=== PATIENT | female | born 1965 | race African-American/Black ===

== ENCOUNTER 2017-09-25 19:53 | Emergency (ER) | payer MEDICARE, OTHER ==
[~2017-09-25] VITALS: Ht 170.2 cm; Wt 68.2 kg
[2017-09-25] MEDS ORDERED: ALBU8HFA IH (20:26)
[2017-09-25] MEDS ORDERED: DIAZ10 PO (20:26)
[2017-09-25] MEDS ORDERED: CYCL10 PO (20:26)
[2017-09-25] MEDS ORDERED: ESOM20CA31 PO (20:26)
[2017-09-25] MEDS ORDERED: OXYC10 PO (20:26)
[2017-09-25] MEDS ORDERED: PERTUSS(ACELL),DIPH,TET VAC/PF 0.5 ML VIAL IM ONE (20:45)
[2017-09-25] MEDS ORDERED: BACITRACIN 0.9 GM PACKET OINTMENT TP ONE (21:00)
[2017-09-25] MEDS ORDERED: IBUPROFEN 800 MG TABLET PO ONE (21:00)
[2017-09-25 22:20] VITALS: BP 140/88
== END 2017-09-25 22:20 | disposition home or self-care (01) ==
LOC: EMS 19:56
DX: S01.511A Laceration without foreign body of lip, initial encounter (principal); S00.93XA Contusion of unspecified part of head, initial encounter; K21.9 Gastro-esophageal reflux disease without esophagitis; G89.29 Other chronic pain; F17.210 Nicotine dependence, cigarettes, uncomplicated; Y04.0XXA Assault by unarmed brawl or fight, initial encounter; Y93.89 Activity, other specified; Y92.89 Other specified places as the place of occurrence of the external cause; Y99.8 Other external cause status
CPT/HCPCS: 90471; 90715; 99283; 99406